=== PATIENT | female | born 1980 ===

== ENCOUNTER 2016-04-18 14:40 | Emergency (ER) | payer BC ==
[2016-04-18 14:46] VITALS: BP 130/85
--- NOTE | 2016-05-25 09:47 | ED ---
Laceration/Wound HPI - HPI Summary HPI Summary: Patient was cutting carrots 5 days ago and cut the tip of her middle left finger and part of the nail is off. She feels it isn't healing well and wanted it evaluated. She has had a bandaid on x 5 days and is having trouble getting it off. She does not have complaints of pain or N/T. Her tetanus is up to date. - History of Current Complaint Stated Complaint: RT MIDDLE FINGER LAC Time Seen by Provider: 04/18/16 14:49 Hx Obtained From: Patient Mechanism of Injury: Sharp/Blunt Trauma Onset/Duration: Sudden Onset Aggravating: Nothing Alleviating: Nothing Timing: Constant Onset Severity: Severe Current Severity: None Pain Intensity: 0 Pain Scale Used: 0-10 Numeric Associated Signs & Symptoms: Negative Related Hx: Dominant Hand (Right) - Allergy/Home Medications Allergies/Adverse Reactions: Allergies Allergy/AdvReac Type Severity Reaction Status Date / Time Fluoxetine [From Prozac] Allergy Hives Verified 04/18/16 14:43 PMH/Surg Hx/FS Hx/Imm Hx Previously Healthy: Yes Infectious Disease History: No Infectious Disease History: Denies: Traveled Outside the [place] in Last 30 Days - Family History Known Family History: Positive: None - Social History Occupation: Employed Full-time Lives: With Family Alcohol Use: None Substance Use Type: Reports: None Smoking Status (MU): Never Smoked Tobacco Review of Systems Positive: Other - 5mm healing skin avulsion to left middle finger All Other Systems Reviewed And Are Negative: Yes Physical Exam Triage Information Reviewed: Yes Vital Signs On Initial Exam: Initial Vitals Temp Pulse Resp BP Pulse Ox 98.0 F 91 18 130/85 100 04/18/16 14:43 04/18/16 14:43 04/18/16 14:43 04/18/16 14:43 04/18/16 14:43 Vital Signs Reviewed: Yes Appearance: Positive: Well-Appearing, No Pain Distress, Well-Nourished Skin: Positive: Warm, Skin Color Reflects Adequate Perfusion, Dry, Soft - 5mm healing skin avulsion to left middle finger tip Head/Face: Positive: Normal Head/Face Inspection Eyes: Positive: EOMI, MURPHY, Conjunctiva Clear ENT: Positive: Hearing grossly normal Respiratory/Lung Sounds: Positive: Breath Sounds Present Cardiovascular: Positive: RRR Musculoskeletal: Positive: Strength/ROM Intact. Negative: Edema Left Neurological: Positive: Sensory/Motor Intact, Alert, Oriented to Person Place, Time, NV Bundle Intact Distally Psychiatric: Positive: Affect/Mood Appropriate, Anxious Diagnostics - Vital Signs Vital Signs Temp Pulse Resp BP Pulse Ox 04/18/16 14:43 98.0 F 91 18 130/85 100 - Laboratory Lab Statement: Any lab studies that have been ordered have been reviewed, and results considered in the medical decision making process. Laceration Repair Course/Dx - Differential Dx Differental Diagnoses: Abrasion, Avulsion, Dehiscence, Hematoma, Laceration, Puncture Wound - Clinical Impression Provider Diagnoses: skin avulsion Discharge - Discharge Plan Condition: Stable Disposition: HOME Patient Education Materials: Skin Avulsion (ED) Referrals: Josh Colvin MD [Primary Care Provider] - Additional Instructions: You can leave your wound open to air and use your finger as tolerated.
== END 2016-04-18 15:43 | disposition home or self-care (01) ==
LOC: ED 14:40
DX: S61.213A Laceration without foreign body of left middle finger without damage to nail, initial encounter (principal); W45.8XXA Other foreign body or object entering through skin, initial encounter; Y93.9 Activity, unspecified; Y92.9 Unspecified place or not applicable
CPT/HCPCS: 99281